=== PATIENT | male | born 1960 | race Caucasian/White ===

== ENCOUNTER 2016-05-26 08:34 | Outpatient (CLI) | payer OTHER ==
--- NOTE | 2016-05-26 09:33 | DIAGNOSTIC IMAGING REPORT ---
PROCEDURE: CT THORAX ABD PELVIS W/CONT INDICATION: COLON CA, follow-up TECHNIQUE: 125 ml of Isovue 300 injected intravenously and axial images were obtained of the entire thorax, abdomen, and pelvis with sagittal and coronal reformations. COMPARISON: CT chest/abdomen/pelvis 03/24/2016 and 09/28/2015 FINDINGS: THORAX: Lungs are clear without pulmonary nodules or infiltrates. No adenopathy or effusion. Mild coronary atherosclerosis. The heart size is normal. Stable small pericardial effusion/thickening. Stable left subclavian Port-A-Cath. Old right rib fractures. ABDOMEN: Left hepatectomy. There are several hepatic lesions with heterogeneous enhancement, three of which have decreased in size since the prior study, largest one in the dome measures 4.3 cm, previously 4.8 cm. The remaining hepatic lesions are stable. Cholecystectomy. Stable 1 cm left adrenal nodule. Pancreas, spleen, right adrenal gland and right kidney are normal. Several stable small left renal cysts. Mild atherosclerosis of the aorta. PELVIS: Normal appendix . Stable post radiation changes of the pelvis with minor fat stranding. Improved rectal wall thickening. Dystrophic prostate calcifications. Normal bladder. No adenopathy, free fluid or pelvic mass. Mild degenerative changes of the spine. IMPRESSION: 1. Left hepatectomy with interval decreased size of several hepatic lesions 2. Cholecystectomy 3. Stable pelvic post treatment changes All CT scans at this facility use dose modulation, iterative reconstruction, and/or weight-based dosing when appropriate to reduce radiation dose to as low as reasonably achievable.
== END 2016-05-26 23:00 ==
LOC: CT SRH 08:34
DX: C18.9 Malignant neoplasm of colon, unspecified (principal); Z90.49 Acquired absence of other specified parts of digestive tract; Z90.89 Acquired absence of other organs

== ENCOUNTER 2016-09-01 11:54 | Emergency (ER) | payer OTHER ==
--- NOTE | 2016-09-01 16:05 | DIAGNOSTIC IMAGING REPORT ---
PROCEDURE: CT ABD/PELVIS WITH CONTRAST CLINICAL INDICATION: Diffuse abdominal pain. Initial encounter. TECHNIQUE: 125 ml of Isovue 300 were injected intravenously and axial images were obtained of the entire abdomen and pelvis with sagittal and coronal reformations. COMPARISON: CT chest/abdomen/pelvis 05/26/2016. FINDINGS: ABDOMEN: Interval progression of the several heterogeneous hepatic lesions, largest one a in the dome of the liver which measures 5.7 x 5.4 cm (previously 4.3 x 4.1 cm). Left hepatectomy. Small amount of fluid in the right pericolic gutter. Cholecystectomy. New mild splenomegaly, 16.1 cm. Stable 1 cm left adrenal nodule. Pancreas, right adrenal gland and right kidney are normal. Small left renal cysts. Mild atherosclerosis of the aorta. Moderate stool. Several nondilated fluid filled loops of small bowel. Lung bases are clear. Pericardial thickening versus stable small pericardial effusion. PELVIS: Normal appendix. Prostate dystrophic calcifications. Normal bladder. Stable mild rectal wall thickening. There is no pelvic mass, inflammatory changes, free fluid or adenopathy. Mild degenerative changes of the spine. IMPRESSION: 1. Left hepatectomy with progression of hepatic metastases 2. Moderate obstipation with several nondilated fluid filled loops of small bowel, likely related to obstipation but enteritis is a consideration. 3. New mild splenomegaly 4. Stable 1 cm left adrenal nodule 5. Cholecystectomy 6. Results discussed with Dr. Ray All CT scans at this facility use dose modulation, iterative reconstruction, and/or weight-based dosing when appropriate to reduce radiation dose to as low as reasonably achievable.
--- NOTE | 2016-09-01 17:33 | ED NURSING NOTES ---
Clinical Report - Nurses Formerly [facility] [address] [place] [address] 09/01/2016 11:55 Patient: CHICA BASURTO TRIAGE Triage time 12:06. Acuity: LEVEL 3. Chief Complaint: abd. pain and back pain. Alert. No acute distress. SEPSIS SCREEN: Sepsis Screen. Negative (no infection suspected/documented). RIA COMA SCORE: Haugan Coma Scale: 15- eyes open spontaneously (4); best verbal response- oriented x 4 (5); best motor response- obeys commands (6). --12:15 Carolynn Acevedo R.N. 12:04 09/01/16. BP: 158/95. HR: 73. RR: 16. O2 saturation: 99%. Temp: 98.0 F. Pain level now 9/10. --12:15 Carolynn Acevedo R.N. ( Oncologist: Dr Guidry). --12:22 Carolynn Acevedo R.N. Weight: 82.1 kg stated. Height/Length: 68 inches Per Patient. BMI: 27.5. --12:06 Carolynn Acevedo R.N. Medications Ondansetron Oral 8 mg, Q8H as needed. --12:09 Carolynn Acevedo R.N. Lisinopril Oral 20 mg, daily. --12:09 Carolynn Acevedo R.N. AmLODIPine Besylate Oral 5 mg, daily. --12:09 Carolynn Acevedo R.N. OxyCODONE HCl Oral 5 mg, as needed. --12:09 Carolynn Acevedo R.N. Allergies Amoxicillin. --12:10 Carolynn Acevedo R.N. History Arrived by private vehicle. Historian: patient. Unaccompanied. Primary physician (Dr. Amaya). Onset. (1 week ago pt. is concerned because he is not getting better.). ( Pt. states, " I think I am having an allergic reaction to my chemo. It has bottled me up. I haven't had a bowel movement since Thursday last week." Pt. said his last chemo was Last Thursday and shortly after the treatment, which was a new treatment, he felt burning and everything felt like it was on fire."). 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 PAST MEDICAL HX: Immunizations: up-to-date. SOCIAL HX: Heavy tobacco smoker (cigarette)- 1 pack per day. Never smoker. Alcohol use. (pt. states he has not had a drink in > 2 years.). History of occasional drug use: marijuana. ABUSE ASSESSMENT: Abuse assessment: The patient was asked "Do you feel safe in your home?" and "Has anyone hurt you or threatened to hurt you?". No report of abuse. NUTRITIONAL RISK ASSESSMENT: The nutritional risk assessment revealed no deficiencies. FUNCTIONAL ASSESSMENT: Functional assessment: no impairments noted. LEARNING NEEDS ASSESSMENT: The learning needs assessment revealed no barriers. --12:15 Carolynn Acevedo R.N. PROBLEMS: Hypertension. Rectal cancer. Colon Cancer. --12:11 Carolynn Acevedo R.N. Interventions ID band on patient. Ambulatory. --12:15 Carolynn Acevedo R.N. PHYSICAL ASSESSMENT Ambulatory to room. GENERAL / NEURO / PSYCH: Alert. The patient does not appear to be in acute distress. RESPIRATORY: Respirations not labored. CVS: Capillary refill less than 2 seconds. Pulses within normal limits. GI / : Abdominal tenderness in the right upper quadrant. SKIN: Skin is intact, warm and dry. --12:15 Carolynn Acevedo R.N. NURSING PROGRESS NOTES Patient gowned. Head of bed elevated. Two patient identifiers checked. Call light placed in reach. Side rails up x 2. Bed placed in lowest position. Brakes of bed on. Patient ready for evaluation- chart flagged. --12:16 Carolynn Acevedo R.N. 12:21 09/01/2016 Site #1 accessed indwelling Powerport in the left using a 20g, 1 inch non-coring needle following sterile technique; 1 attempt. Good blood return noted. Site prepped with chlorhexidine. Blood drawn: rainbow set. Labeled in the presence of the patient and sent to the lab. Proximal port flushed with 20 mL saline (Location: left chest. Accessed by Amy Benavides RN). --12:21 Carolynn Acevedo R.N. Patient informed about reason for wait and about plan of care. --13:42 Carolynn Acevedo R.N. 13:41 09/01/16. BP: 165/84. HR: 57. RR: 16. O2 saturation: 100%. --13:42 Carolynn Acevedo R.N. Patient informed about reason for wait. --15:26 Carolynn Acevedo R.N. 15:25 09/01/16. BP: 158/88. HR: 68. RR: 15. O2 saturation: 99%. --15:26 Carolynn Acevedo R.N. ( pt. notified to leave urine sample. Pt. not able to at this time.). --15:30 Carolynn Acevedo R.N. Patient ID band checked. Clean catch urine collected with return of loan-colored cloudy urine; odor is foul-smelling; sample sent to lab for urinalysis and culture. Specimen labeled in the presence of the patient. --15:45 Tristen Pinon R.N. 15:49 09/01/2016 Started bag #1 1000 mL IV Fluids IV NS (Saline); at 999 mL/hr over 1 hour(s) via site #1 via IV pump. Allergies verified and confirmed 5 rights. IV patency established. IV site checked: no pain, redness, or swelling. IV flushed thoroughly pre- and post-medication administration. --15:49 Tristen Pinon R.N. 16:54 09/01/2016 IV Fluids IV NS Continued: at the rate of 50 mL/hr. 100 mL remaining bag #1. IV patency established. IV site checked: no pain, redness, or swelling. IV flushed thoroughly. --16:54 Jodi Leonardo R.N. DISPOSITION / DISCHARGE 18:24 09/01/2016 Site #1 removed upon discharge. Catheter intact (Flushed port a cath with 20 mLs NS per protocol and then with 5 mLs Heparin 100 units/ml prior to deaccess). --18:29 Niranjan Olsen R.N. 18:30 09/01/16. Condition at departure: improved. The goals identified in the patient's plan of care were met. No learning barriers present. Discharge instructions provided and reviewed with the patient. Reviewed warnings. Reviewed medication(s). Treatments reviewed. Patient verbalized understanding. Written instructions provided in Frisian. The patient was discharged by the physician. He was discharged home. He left the Emergency Department ambulatory and via private vehicle. Patient driving. FALL RISK ASSESSMENT: Fall risk assessment completed. No fall risk identified. --18:30 Niranjan Olsen R.N. 18:27 09/01/16. BP: 145/72. HR: 82. RR: 14. O2 saturation: 100% on room air. Temp: 98 F (oral). Pain level now: 05/20. --18:30 Niranjan Olsen R.N. 18:30 09/01/16. Departure time: 18:30. --18:30 Niranjan Olsen R.N. Locked/Released at 09/01/2016 18:31 by Niranjan Olsen R.N.
--- NOTE | 2016-09-01 17:33 | ED ORDER SUMMARY ---
..... Patient: CHICA BASURTO OrderSheet [facility] VisitID: [id number] [address] [place] [address] 56y, M Registration Date/Time: 09/01/2016 ORDER SHEET Weight: 82.1 kg (stated) Allergies: Amoxicillin GENERAL ORDERS: CBC w Diff Urgent (12:09/01/2016 July GERMAN) (Ack 12:16 Amarjit) (12:26 SReitz R.N.) CMP Urgent (12:09/01/2016 July GERMAN) (Ack 12:16 Tungner) (12:26 SReitz R.N.) UA-Culture if indicated Urgent (12:09/01/2016 July GERMAN) (Ack 12:16 Amarjit) (15:45 LWhalen R.N.) Amylase Urgent (12:09/01/2016 July GERMAN) (Ack 12:16 Amarjit) (12:26 SReitz R.N.) Lipase Urgent (12:09/01/2016 July GERMAN) (Ack 12:16 MANUELoemiladysner) (12:26 SReitz R.N.) Lactate, Serum Urgent (14:37 09/01/2016 July GERMAN) (Ack 14:38 MANUELoerner) (14:41 KHoerner) CT Abd/Pel w Cont (No) (See report) Urgent (14:37 09/01/2016 July GERMAN) (Ack 14:38 MANUELoepippa) (14:45 KHoerner) MEDICATION ORDERS: IV FLUIDS: IV Saline Lock (12:09/01/2016 July GERMAN) (Ack 12:21 SReitz R.N.) IV NS : initial bolus 1000 mL (1000 mL/hr), then 150 mL/hr for 4h (NOW); Urgent (15:43 09/01/2016 July GERMAN) (15:49 LWhalen R.N.) ORDER SHEET NOTES: [Electronically signed by Niranjan Olsen R.N. (18:31 09/01/2016)] [Electronically signed by Shaan Ray MD (22:44 09/02/2016)] [Electronically locked/signed by Niranjan Olsen R.N. (18:31 09/01/2016)]
--- NOTE | 2016-09-01 17:33 | ED CLINICAL REPORT ---
Clinical Report - Physicians/Mid Levels [facility] [address] [place] [address] 09/01/2016 11:55 Patient: CHICA BASURTO Time Seen: 12:08. Arrived- By private vehicle. Historian- patient. HISTORY OF PRESENT ILLNESS Chief Complaint: ABDOMINAL PAIN. At its maximum, severity described as 10 / 10. When seen in the E.D., severity described as 9 / 10. Modifying factors. Not worsened by anything. Not relieved by anything. This started about 5 days ago and is still present and now worse. It was gradual in onset and has been constant. It is described as generalized in location, located in the right upper quadrant and radiating to the upper back and low back. The patient has had nausea and loss of appetite. He has had vomiting (last week). The vomiting has occurred several times. No diarrhea. Recent medical care: The patient was seen recently at another facility in a clinic. REVIEW OF SYSTEMS The patient has had constipation. Last bowel movement- 5 days ago. reports decreased flatus. All systems otherwise negative, except as recorded above. PAST HISTORY PCP - [facility] De Los [facility] - [place]. Problems: Hypertension. Rectal cancer. Colon Cancer. Medications: OxyCODONE HCl Oral 5 mg, as needed. AmLODIPine Besylate Oral 5 mg, daily. Lisinopril Oral 20 mg, daily. Ondansetron Oral 8 mg, Q8H as needed. Allergies: Amoxicillin. SOCIAL HISTORY Current every day heavy tobacco smoker (cigarette)- 1 pack per day. History of drug use: marijuana. No alcohol use. Residence: [facility] he lives with a family member. FAMILY HISTORY Cancer in first-degree relative (mother). ADDITIONAL NOTES The nursing notes have been reviewed. PHYSICAL EXAM Vital Signs: 09/01/2016 12:04 BP: 158/95. HR: 73. RR: 16. O2 saturation: 99%. Temp: 98.0 F. Have been reviewed. Appearance: Alert. Eyes: Pupils equal, round and reactive to light. ENT: Pharynx normal. Neck: Normal inspection. Neck supple. CVS: Normal heart rate and rhythm. Heart sounds normal. Respiratory: No respiratory distress. Breath sounds normal. Abdomen: Soft and nontender. Bowel sounds normal. No organomegaly. No mass. Back: Normal inspection. Skin: Skin warm and dry. Normal skin color. Normal skin turgor. Extremities: Extremities exhibit normal ROM. No calf tenderness. No lower extremity edema. LABS, X-RAYS, AND EKG Abdominal CT: IMPRESSION: 1. Left hepatectomy with progression of hepatic metastases 2. Moderate obstipation with several nondilated fluid filled loops of small bowel, likely related to obstipation but enteritis is a consideration. 3. New mild splenomegaly 4. Stable 1 cm left adrenal nodule 5. Cholecystectomy. The study was interpreted contemporaneously by me and discussed with the radiologist. Laboratory Tests: UA-Culture if indicated: (JAVIER: 09/01/2016 15:45) ( MsgRcvd 09/01/2016 16:01) Final results Test Result Flag Units (Reference) URINE COLOR REAL URINE APPEARANCE CLEAR URINE GLUCOSE NEGATIVE (NEGATIVE) URINE BILIRUBIN NEGATIVE (NEGATIVE) URINE KETONE NEGATIVE (NEGATIVE) URINE SPECIFIC GRAVITY 1.010 (1.010-1.030) URINE PH 7.0 (5.0-8.0) URINE PROTEIN 2+ (NEGATIVE) URINE UROBILINOGEN 4.0 EU/dL (0.2-1.0) The urobilinogen reagent area may react with interferingsubstances known to react with Aubrie's reagent such asp-aminosalicylic acid and sulfonamides. Atypical colorreactions may be obtained in the presence of highconcentrations of p-aminobenzoic acid. The absence ofurobilinogen cannot be determined with this test. URINE NITRITE NEGATIVE (NEGATIVE) URINE BLOOD TRACE-LYSED (NEGATIVE) URINE LEUK ESTERASE NEGATIVE (NEGATIVE) URINE RBC 3-5 rbc/hpf (0-1) URINE WBC NONE SEEN wbc/hpf (0-1) URINE EPITHELIAL CELLS NONE SEEN EPI/hpf (0-5) URINE BACTERIA NONE SEEN (NONE SEEN) URINE COMMENT CULT NOT INDICATED 1+ MUCUSURINE CULTURES ARE SET-UP BASED ON THE FOLLOWING CRITERIA:POSITIVE NITRITEPOSITIVE LEUKOCYTE ESTERASEGREATER THAN 10 WHITE BLOOD CELLSMODERATE (2+) OR GREATER BACTERIA CBC w Diff: (AJVIER: 09/01/2016 12:23) ( MsgRcvd 09/01/2016 12:38) Final results Test Result Flag Units (Reference) WHITE BLOOD COUNT 3.7 L K/uL (4.5-11.5) RED BLOOD COUNT 4.28 L M/uL (4.50-5.90) HEMOGLOBIN 12.9 L gm/dL (13.5-17.5) HEMATOCRIT 38.6 L % (41.0-53.0) MEAN CELL VOLUME 90 fL (80-100) MEAN CORPUSCULAR HGB 30 pg (26-34) MEAN CORPUSCULAR HGB CONC 34 g/dL (31-37) RED CELL DISTRIBUTION WIDTH 13.9 % (11.6-14.8) PLATELET COUNT 84 L K/uL (150-400) NEUTROPHIL % 87.0 H % (50-75) LYMPH % 2.9 L % (25-40) MONO % 8.8 % (3-14) EOSINOPHIL % 1.0 % (0-4) BASOPHIL % 0.3 % (0-2) Lactate, Serum: (JAVIER: 09/01/2016 14:50) ( [facility] 09/01/2016 15:22) Final results Test Result Flag Units (Reference) LACTIC ACID 0.8 mmol/L (0.4-2.0) CMP: (JAVIER: 09/01/2016 12:23) ( [facility] 09/01/2016 13:13) Final results Test Result Flag Units (Reference) GLUCOSE 105 mg/dL (70-110) BUN 14 mg/dL (7-18) CREATININE 0.8 mg/dL (0.6-1.3) Estimated GFR >60 mL/min Estimated GFR- >60 mL/min Note: Persistent reduction over 3 months in eGFR<60 mL/min/1.73 m2 defines CKD. Patients with eGFR values>=60 mL/min/1.73 m2 may also have CKD if evidence ofpersistent proteinuria. Additional information may be foundat www.kidney.org. SODIUM 135 L mmol/L (136-145) POTASSIUM 4.2 mmol/L (3.5-5.1) CHLORIDE 101 mmol/L (98-107) CARBON DIOXIDE 28 mmol/L (21-32) CALCIUM 8.4 L mg/dL (8.5-10.1) TOTAL PROTEIN 7.1 g/dL (6.4-8.2) ALBUMIN 2.9 L g/dL (3.3-5.0) BILIRUBIN, TOTAL 0.5 mg/dL (0.0-1.0) ALKALINE PHOSPHATASE 164 H U/L (46-116) AST (SGOT) 41 H U/L (15-37) ALT (SGPT) 43 U/L (12-78) LIPASE 162 U/L (73-393) AMYLASE 63 U/L (25-115) . PROGRESS AND PROCEDURES Course of Care: Patient is stable. Discussed case with health care provider (Chao - Oncology). Reviewed test results and need for additional work-up. Agreed upon treatment plan and need for patient follow-up. Health care provider will see patient in office. Patient/family counseled. Old medical records ordered. Old records unavailable. Disposition: Discharged. Condition: stable. CLINICAL IMPRESSION Abnormal tests: (polycytopenia due to chemotherapy). Cancer. Metastases present. Currently on chemotherapy. Constipation INSTRUCTIONS Drink plenty of fluids. Warnings: Further evaluation is necessary. GENERAL WARNINGS: Return or contact your physician immediately if your condition worsens or changes unexpectedly, if not improving as expected, or if other problems arise. Your Current Medications: CONTINUE TAKING THE FOLLOWING MEDICATIONS: AmLODIPine Besylate Oral : 5 mg daily. Lisinopril Oral : 20 mg daily. Ondansetron Oral : 8 mg Q8H, prn. OxyCODONE HCl Oral : 5 mg, prn. Prescription Medications: Fleet Enema 4.5 oz: Insert the enema into rectum gently and squeeze until nearly all the liquid is expelled. Dispense one (1) bottle. No refills. Substitution is permissible. OTC Medications: Magnesium Citrate (10-oz bottle) (available over the counter): take 1/2 bottle to achieve bowel movement. Repeat after 4 hours if needed. Follow-up: Follow up with an oncologist Dr. Guidry Thursday as scheduled. Understanding of the discharge instructions verbalized by patient. (Electronically signed by Shaan Ray MD 09/02/2016 22:44)
--- NOTE | 2016-09-01 17:33 | ED ORDER SUMMARY ---
..... Patient: CHICA BASURTO OrderSheet [facility] VisitID: [id number] [address] [place] [address] 56y, M Registration Date/Time: 09/01/2016 ORDER SHEET Weight: 82.1 kg (stated) Allergies: Amoxicillin GENERAL ORDERS: CBC w Diff Urgent (12:09/01/2016 July GERMAN) (Ack 12:16 Amarjit) (12:26 SReitz R.N.) CMP Urgent (12:09/01/2016 July GERMAN) (Ack 12:16 Tungner) (12:26 SReitz R.N.) UA-Culture if indicated Urgent (12:09/01/2016 July GERMAN) (Ack 12:16 Amarjit) (15:45 LWhalen R.N.) Amylase Urgent (12:09/01/2016 July GERMAN) (Ack 12:16 Amarjit) (12:26 SReitz R.N.) Lipase Urgent (12:09/01/2016 July GERMAN) (Ack 12:16 MANUELoemiladysner) (12:26 SReitz R.N.) Lactate, Serum Urgent (14:37 09/01/2016 July GERMAN) (Ack 14:38 MANUELoerner) (14:41 KHoerner) CT Abd/Pel w Cont (No) (See report) Urgent (14:37 09/01/2016 July GERMAN) (Ack 14:38 MANUELoepippa) (14:45 KHoerner) MEDICATION ORDERS: IV FLUIDS: IV Saline Lock (12:09/01/2016 July GERMAN) (Ack 12:21 SReitz R.N.) IV NS : initial bolus 1000 mL (1000 mL/hr), then 150 mL/hr for 4h (NOW); Urgent (15:43 09/01/2016 July GERMAN) (15:49 LWhalen R.N.) ORDER SHEET NOTES: [Electronically signed by Niranjan Olsen R.N. (18:31 09/01/2016)] [Electronically signed by Shaan Ray MD (22:44 09/02/2016)] [Electronically locked/signed by Niranjan Olsen R.N. (18:31 09/01/2016)]
--- NOTE | 2016-09-02 22:45 | ED MED RECONCILIATION SUMMARY ---
Patient: CHICA BASURTO Medication Reconciliation Report [facility] VisitID: [id number] [address] [place] [address] 56y, M Registration Date/Time: 09/01/2016 Weight: 82.1 kg Height/Length: 68 in. BMI: 27.5 ALLERGIES: Amoxicillin The patient's Home Medications are listed below: CONTINUE TAKING THE FOLLOWING MEDICATIONS: AmLODIPine Besylate Oral 5 mg, daily Lisinopril Oral 20 mg, daily Ondansetron Oral 8 mg, Q8H OxyCODONE HCl Oral 5 mg The source(s) of the original Home Medication information: Not obtained. The following Medications were given to the patient in the Emergency Department: IV NS IV Fluids bolus 0, then 999 mL/hr, administered: 09/01/2016 3:49:00 PM The following Medications were prescribed to the patient: Magnesium Citrate (10-oz bottle) (available over the counter): take 1/2 bottle to achieve bowel movement. Repeat after 4 hours if needed. -- Shaan Ray MD Fleet Enema 4.5 oz: Insert the enema into rectum gently and squeeze until nearly all the liquid is expelled. Dispense one (1) bottle. No refills. Substitution is permissible. -- Shaan Ray MD
--- NOTE | 2016-09-02 22:45 | ED DISCHARGE INSTRUCTIONS ---
Patient: CHICA BASURTO General Instructions [facility] VisitID: [id number] [place] [address] 56y, M Registration Date/Time: 09/01/2016 Abnormal tests: (polycytopenia due to chemotherapy). Cancer. Metastases present. Currently on chemotherapy. Constipation INSTRUCTIONS Drink plenty of fluids. Warnings: Further evaluation is necessary. GENERAL WARNINGS: Return or contact your physician immediately if your condition worsens or changes unexpectedly, if not improving as expected, or if other problems arise. Your Current Medications: CONTINUE TAKING THE FOLLOWING MEDICATIONS: AmLODIPine Besylate Oral : 5 mg daily. Lisinopril Oral : 20 mg daily. Ondansetron Oral : 8 mg Q8H, prn. OxyCODONE HCl Oral : 5 mg, prn. Prescription Medications: Fleet Enema 4.5 oz: Insert the enema into rectum gently and squeeze until nearly all the liquid is expelled. Dispense one (1) bottle. No refills. Substitution is permissible. OTC Medications: Magnesium Citrate (10-oz bottle) (available over the counter): take 1/2 bottle to achieve bowel movement. Repeat after 4 hours if needed. Follow-up: Follow up with an oncologist Dr. Guidry Thursday as scheduled. Understanding of the discharge instructions verbalized by patient. ADDITIONAL INFORMATION Constipation (Adult) Constipation is bowel movements that are less frequent than usual. Stools often become very hard and difficult to pass. This may lead to abdominal pain and bloating. It may also cause painful bowel movements. Constipation may be due to a diet thats low in fiber. Some medications, especially pain medications, can also cause it. Constipation may be treated with enemas, suppositories, laxatives or stool softeners. Your doctor will advise you which will work best for you. Follow the advice below to help avoid this problem in the future. Home Care Medication: Take any medicines as directed. Some laxatives are safe only for occasional use. Others can be taken on a regular basis. Talk to your doctor or pharmacist if you have questions. General Care: Prescription pain medications can cause constipation. If you are prescribed pain medications, ask the doctor whether you should also take a stool softener. A diet high in fiber with plenty of fluids helps to maintain regular, soft bowel movements. The following foods are good sources of dietary fiber: Cereals and breads: Whole grain cereal with bran, oatmeal, rolled oats, whole grain breads Fruits: All fruits (fresh and dried), raisins, prunes, apricots, berries, figs Vegetables: Any fresh vegetables, especially peas, broccoli, brussels sprouts, winter squash, green beans, cauliflower, laureano beans, carrots Other: Popcorn, brown rice Drink plenty of water when you increase the amount of fiber you eat. Follow Up with your doctor or return to this facility if symptoms do not improve in the next few days. You may require further tests or a referral to a specialist. Get Prompt Medical Attention if any of the following occur: Fever over 100.4F (38C) Failure to resume normal bowel movements Increasing abdominal or back pain Nausea or vomiting Abdominal swelling Blood in the stool Weakness, dizziness or fainting Unexpected vaginal bleeding High Fiber Diet Fiber is present in all fruits, vegetables, cereals and grains. Fiber passes through the body undigested. A high fiber diet helps food move through the intestinal tract. The added bulk is helpful in preventing constipation. In people with diverticulosis it serves to clean out the pouches along the colon wall while preventing new ones from forming. A high fiber diet also reduces the risk of colon cancer, decreases blood cholesterol and prevents high blood sugar in people with diabetes. The foods listed below are high in fiber and should be included in your diet. If you are not used to high fiber foods, start with 1 or 2 foods from this list. Every 3-4 days add a new one to your diet until you are eating 4 high fiber foods per day. This should give you 20-35 Gm of fiber/day. It is also important to drink a lot of water when you are on this diet (6-8 glasses a day). Water causes the fiber to swell and increases the benefit. Foods High In Dietary Fiber: BREADS: Made with 100% whole wheat flour; akilah, wheat or rye crackers; tortillas, bran muffins CEREALS: Whole grain cereal with bran (Chex, Raisin Bran, [place] Bran), oatmeal, rolled oats, granola, wheat flakes, brown rice NUTS: Any nuts FRUITS: All fresh fruits along with edible skins, (bananas, citrus fruit, mangoes, pears, prunes, raisins, apples, pineapple, apricot, melon, jams and marmalades), fruit juices (especially prune juice) VEGETABLES: All types, preferably raw or lightly cooked: especially, celery, eggplant, potatoes,spinach, broccoli, brussel sprouts, winter squash, carrots, cauliflower, soybeans, lentils, fresh and dried beans of all kinds OTHER: Popcorn, any spices You have been given the following additional information: Constipation (Adult) Diet, High Fiber (Electronically signed by Shaan Ray MD 09/02/2016 22:44)
--- NOTE | 2016-09-02 22:45 | ED MAR SUMMARY ---
..... Medication Administration Record [facility] [address] [place] [address] Patient: CHICA BASURTO Visit ID: [id number] 56y, M Weight: 82.1 kg Height/Length: 68 in BMI: 27.5 ALLERGIES: Amoxicillin Start 15:49 09/01/2016 Tristen Pinon RMejia, Continued Upon Disposition 16:54 09/01/2016 Jodi Leonardo RMejia Medication Administered: IV NS (SALINE), Dose: IV Fluids over 1 hour(s), Rate: 999 mL/hr, Dispensed: 1000 mL bag, Site: #1 left. Medication Ordered: IV NS : initial bolus 1000 mL (1000 mL/hr), then 150 mL/hr for 4h (NOW); Urgent.
--- NOTE | 2016-09-02 22:45 | ED MED RECONCILIATION SUMMARY ---
Patient: CHICA BASURTO Medication Reconciliation Report [facility] VisitID: [id number] [place] [address] 56y, M Registration Date/Time: 09/01/2016 Weight: 82.1 kg Height/Length: 68 in. BMI: 27.5 ALLERGIES: Amoxicillin The patient's Home Medications are listed below: CONTINUE TAKING THE FOLLOWING MEDICATIONS: AmLODIPine Besylate Oral 5 mg, daily Lisinopril Oral 20 mg, daily Ondansetron Oral 8 mg, Q8H OxyCODONE HCl Oral 5 mg The source(s) of the original Home Medication information: Not obtained. The following Medications were given to the patient in the Emergency Department: IV NS IV Fluids bolus 0, then 999 mL/hr, administered: 09/01/2016 3:49:00 PM The following Medications were prescribed to the patient: Magnesium Citrate (10-oz bottle) (available over the counter): take 1/2 bottle to achieve bowel movement. Repeat after 4 hours if needed. -- Shaan Ray MD Fleet Enema 4.5 oz: Insert the enema into rectum gently and squeeze until nearly all the liquid is expelled. Dispense one (1) bottle. No refills. Substitution is permissible. -- Shaan Ray MD
--- NOTE | 2016-09-02 22:45 | ED MAR SUMMARY ---
..... Medication Administration Record [facility] [address] [place] [address] Patient: CHICA BASURTO Visit ID: [id number] 56y, M Weight: 82.1 kg Height/Length: 68 in BMI: 27.5 ALLERGIES: Amoxicillin Start 15:49 09/01/2016 Tristen Pinon RMejia, Continued Upon Disposition 16:54 09/01/2016 Jodi Leonardo RMejia Medication Administered: IV NS (SALINE), Dose: IV Fluids over 1 hour(s), Rate: 999 mL/hr, Dispensed: 1000 mL bag, Site: #1 left. Medication Ordered: IV NS : initial bolus 1000 mL (1000 mL/hr), then 150 mL/hr for 4h (NOW); Urgent.
== END 2016-09-01 18:30 | disposition home or self-care (01) ==
LOC: ED SRH 11:54
DX: D75.1 Secondary polycythemia (principal); K59.00 Constipation, unspecified; I10 Essential (primary) hypertension; F17.210 Nicotine dependence, cigarettes, uncomplicated; F12.10 Cannabis abuse, uncomplicated; Z79.899 Other long term (current) drug therapy; Z88.1 Allergy status to other antibiotic agents
CPT/HCPCS: 83498; 90004; 90100; 92031; 92235; 92530; 95059